=== PATIENT | male | born 1955 | race Caucasian/White ===

== ENCOUNTER → 2018-01-30 | Outpatient (CLI) | payer OTHER ==
[~2018-01-30] MED LIST: ASPI81TA28 PO; ATOR-24 PO; BISO5TAB3 PO; FLUT0.15 INTNAS; IBUP-1428 PO; LISI-461 PO; MONT1TAB3 PO; OXYC-57 PO; PHEN37.585 PO; PRLSR20 PO; SYMIN160 INH; VALS40TA2 PO; VNTHFA/IN PO
--- NOTE | 2018-01-30 13:58 | DIAGNOSTIC IMAGING REPORT ---
CHEST 2 VIEWS ROUTINE CLINICAL HISTORY: Preoperative chest COMPARISON STUDY: 03/08/2016 FINDINGS: The heart remains mildly enlarged. There is no failure. There is no focal pulmonary consolidation. There are no pleural effusions. There are linear areas of atelectasis/scarring at the lung bases.[ IMPRESSION: No active disease in the chest. Electronically signed by: Rigo Ibrahim M.D. 01/30/2018 1:56 PM Dictated Date/Time: 01/30/2018 1:56 PM
[2018-01-30 14:53] LABS: BASO % 0.5 %; BASO ABS # 0.04 K/uL (0-0.2); EOS ABS # 0.44 K/uL (0-0.5); HEMATOCRIT 37.2 % (42-52); HEMOGLOBIN 12.7 g/dL (14.0-18.0); IG# 0.04 K/uL (0.00-0.02); LYMPH % 21.2 %; LYMPH ABS # 1.88 K/uL (1.2-3.4); MEAN CELL VOLUME 105.4 fL (80-100); MEAN CORPUSCULAR HGB CONC 34.1 g/dl (32-36); MEAN PLATELET VOLUME 10.9 fL (7.4-10.4); MONO % 13.8 %; MONO ABS # 1.22 K/uL (0.11-0.59); NEUT ABS # 5.25 K/uL (1.4-6.5); PLATELET COUNT 229 K/uL (130-400); RED CELL DISTRIBUTION WIDTH CV 13.3 % (11.5-14.5); WHITE BLOOD COUNT 8.87 K/uL (4.8-10.8)
[2018-01-30 15:00] LABS: BLOOD UREA NITROGEN 19 mg/dl (7-18); CALCIUM 8.7 mg/dl (8.5-10.1); CARBON DIOXIDE 25 mmol/L (21-32); CREATININE 1.24 mg/dl (0.60-1.40); GLUCOSE 97 mg/dl (70-99); POTASSIUM 4.7 mmol/L (3.5-5.1); SODIUM 138 mmol/L (136-145)
[2018-01-30 15:01] LABS: PTT PATIENT 25.1 SECONDS (21.0-31.0)
== END | disposition home or self-care (01) ==
LOC: C.CPL 13:05
PROVIDERS: ATTEND Orthopaedic Surgery
DX: Z01.818 Encounter for other preprocedural examination (principal)